=== PATIENT | female | born 1955 | race Caucasian/White ===

== ENCOUNTER 2018-09-08 17:23 | Emergency (ER) | payer OTHER ==
[2018-09-08] MEDS ORDERED: HYDROmorphone 1 MG/ML Syringe IVPUSH ONE ×2 (17:36→19:45)
[2018-09-08] MEDS ORDERED: Sodium Chloride 0.9% 1,000 ML IV ONE (17:36)
[2018-09-08] MEDS ORDERED: Ondansetron 4 MG/2 ML SDV IVPUSH ONE (17:36)
--- NOTE | 2018-09-08 17:41 | EDM.PDOC ---
ED HPI GENERAL MEDICAL PROBLEM - General Chief Complaint: Lower Extremity Injury/Pain Stated Complaint: INJURED LEG Time Seen by Provider: 09/08/18 17:33 - History of Present Illness INITIAL COMMENTS - FREE TEXT/NARRATIVE: HISTORY AND PHYSICAL: History of present illness: Patient is a 63-year-old white female presents 1 day status post fall which injured her left hip she states she's had difficulty in their inability to weight-bear since then she denies other trauma concern Review of systems: As per history of present illness and below otherwise all systems reviewed and negative. Past medical history: As per history of present illness and as reviewed below otherwise noncontributory. Surgical history: As per history of present illness and as reviewed below otherwise noncontributory. Social history: No reported history of drug or alcohol abuse. Family history: As per history of present illness and as reviewed below otherwise noncontributory. Physical exam: HEENT: Atraumatic, normocephalic, pupils reactive, negative for conjunctival pallor or scleral icterus, mucous membranes moist, throat clear, neck supple, nontender, trachea midline. Lungs: Clear to auscultation, breath sounds equal bilaterally, chest nontender. Heart: S1S2, regular, negative for clicks, rubs, or JVD. Abdomen: Soft, nondistended, nontender. Negative for masses or hepatosplenomegaly. Negative for costovertebral tenderness. Pelvis: Stable Genitourinary: Deferred. Rectal: Deferred. Extremities: Left hip is without gross deformity she is limited range of motion secondary to pain there is no crepitation noted CMS in neurovascular exam is unremarkable Neuro: Awake, alert, oriented. Cranial nerves II through XII unremarkable. Cerebellum unremarkable. Motor and sensory unremarkable throughout. Exam nonfocal. Diagnostics: CT left hip and pelvis Therapeutics: Saline 1 L bolus Dilaudid 1 mg IV Zofran 4 mg IV Impression: #1 acute left hip injury Definitive disposition and diagnosis as appropriate pending reevaluation and review of above. - Related Data Allergies Allergy/AdvReac Type Severity Reaction Status Date / Time atenolol Allergy Other Verified 09/08/18 17:38 lisinopril Allergy Tachycardia Verified 09/08/18 17:38 Home Meds: Home Meds buPROPion [Wellbutrin] 300 mg PO DAILY 09/08/18 [History] hydroCHLOROthiazide [Hydrochlorothiazide] 25 mg PO DAILY 09/08/18 [History] Review of Systems - Review of Systems Review Of Systems: ROS reveals no pertinent complaints other than HPI. ED EXAM, GENERAL - Physical Exam Exam: See Below (See dictation) Course - Vital Signs Last Recorded V/S: Last Vital Signs Temp 37.2 C 09/08/18 17:39 Pulse 102 H 09/08/18 19:27 Resp 18 09/08/18 17:39 BP 137/76 09/08/18 19:27 Pulse Ox 97 09/08/18 19:27 - Orders/Labs/Meds Orders: Active Orders 24 hr Category Date Time Status EKG Documentation Completion [RC] STAT Care 09/08/18 19:27 Ordered Chest 1V Frontal [CR] Stat Exams 09/08/18 19:28 Ordered CBC WITH AUTO DIFF [HEME] Stat Lab 09/08/18 19:27 Ordered COMPREHENSIVE METABOLIC PN,CMP [CHEM] Stat Lab 09/08/18 19:27 Ordered INR,PT,PROTHROMBIN TIME [COAG] Stat Lab 09/08/18 19:28 Ordered Meds: Medications Discontinued Medications Generic Name Dose Route Start Last Admin Trade Name Freq PRN Reason Stop Dose Admin Hydromorphone HCl 1 mg 09/08/18 17:36 09/08/18 18:07 Dilaudid IVPUSH 09/08/18 17:37 1 mg ONETIME ONE Administration Sodium Chloride 1,000 mls @ 999 mls/hr 09/08/18 17:36 09/08/18 18:08 Normal Saline IV 09/08/18 18:36 999 mls/hr STAT ONE Administration Ondansetron HCl 4 mg 09/08/18 17:36 09/08/18 18:07 Zofran IVPUSH 09/08/18 17:37 4 mg ONETIME ONE Administration Departure - Departure Time of Disposition: 19:28 Disposition: DC/Tfer to Acute Hospital 02 Condition: Good Clinical Impression: Fracture of pelvis, Closed fracture of acetabulum, hip - Discharge Information Referrals: PCP,Unknown [Primary Care Provider] - Forms: ED Department Discharge - My Orders Last 24 Hours: My Active Orders 09/08/18 19:27 EKG Documentation Completion [RC] STAT CBC WITH AUTO DIFF [HEME] Stat COMPREHENSIVE METABOLIC PN,CMP [CHEM] Stat 09/08/18 19:28 Chest 1V Frontal [CR] Stat INR,PT,PROTHROMBIN TIME [COAG] Stat - Assessment/Plan Last 24 Hours: My Active Orders 09/08/18 19:27 EKG Documentation Completion [RC] STAT CBC WITH AUTO DIFF [HEME] Stat COMPREHENSIVE METABOLIC PN,CMP [CHEM] Stat 09/08/18 19:28 Chest 1V Frontal [CR] Stat INR,PT,PROTHROMBIN TIME [COAG] Stat
--- NOTE | 2018-09-08 19:25 | CT ---
INDICATION: Status post fall, landing on the left hip. Hip pain. COMPARISON: COMPARISON DATE TECHNIQUE: CT examination of the pelvis was performed without contrast enhancement using spiral technique. 2 and 3 mm thick axial, sagittal, and coronal sections were obtained from the superior iliac crest through the pubic symphysis. Oral contrast was not administered. Please note that all CT scans at this facility use dose modulation, iterative reconstruction, and/or weight-based dosing when appropriate to reduce radiation dose to as low as reasonably achievable. FINDINGS: : There is an acute oblique fracture of the lateral left superior pubic ramus, minimally extending into the anterior-inferior margin of the acetabulum. There is minimal inferior displacement of the pubic ramus. There is an acute, oblique, comminuted, nondisplaced fracture of the midportion of the left inferior pubic ramus. There is a moderate left intrapelvic hematoma adjacent to the fractures, displacing the urinary bladder moderately toward the right. The hematoma extends superiorly to reach the level of the inferior psoas muscle but does not extend freely into pelvic cavity. There is no sign of free fluid. There is no sign of any additional fracture of the pelvic ring. Specifically, I do not see any fracture of the sacral body, disruption of the sacroiliac joints, or disruption of the pubic symphysis. The hips themselves are normal in appearance bilaterally, with anatomic alignment of the normal-appearing femoral heads with the acetabuli. There is no sign of osteoarthritis. There is mild anterior angulation of the distal 2 coccygeal segments with overlying soft tissue swelling suggesting an acute coccygeal fracture. I recommend correlation with the clinical history. In the pelvis, the appendix is normal in appearance with no sign of inflammatory process.. There is prominent sigmoid diverticulosis without evidence of diverticulitis. The loops of small bowel and colon in the pelvis are otherwise normal in appearance. The uterus is absent and the adnexal regions are normal in appearance. Aside from the left pelvic hematoma mentioned above, there is no sign of pelvic or inguinal mass or adenopathy. The urinary bladder is normal in appearance, aside from being displaced towards the right by the left pelvic hematoma. IMPRESSION: Acute, comminuted, mildly displaced fracture of the lateral aspect of the left superior pubic ramus, associated with a moderate left pelvic hematoma. No sign of free fluid in the pelvis. Acute, nondisplaced, comminuted, oblique fracture of the mid body of the left inferior pubic ramus. Minimal extension of the left superior pubic ramus fracture into the anterior-inferior margin of the acetabulum, but no other involvement of the left hip. Anterior angulation of the distal 2 coccygeal segments, possible acute sacral fracture. Prominent sigmoid diverticulosis. Please note that all CT scans at this facility use dose modulation, iterative reconstruction, and/or weight-based dosing when appropriate to reduce radiation dose to as low as reasonably achievable. Dictated by Cliff Colon MD @ Sep 08 2018 7:10PM Signed by Dr. Cliff Colon @ Sep 08 2018 7:22PM
[2018-09-08 20:08] LABS: CHLORIDE,CL 102 mmol/L (98-107); SODIUM,NA 136 mmol/L (136-145)
--- NOTE | 2018-09-08 20:27 | CR ---
INDICATION: pain/sob INDICATION: Pain/shortness of breath. TECHNIQUE: Chest 1 view. COMPARISON: None FINDINGS: Cardiovascular and mediastinum: Heart size and vasculature are normal in caliber and appearance. Mediastinum is within normal limits. Lungs and pleural space: Lungs are clear. No sign of infiltrate or mass. No sign of pleural effusion. No pneumothorax. Bones and soft tissues: No significant findings. IMPRESSION: Lungs are clear. Dictated by Davin Robert MD @ 09/08/2018 8:25:09 PM Dictated by: Davin Robert MD @ 09/08/2018 20:25:16 (Electronically Signed)
== END 2018-09-08 20:35 ==
LOC: MW.ED 17:23
DX: S32.402A Unspecified fracture of left acetabulum, initial encounter for closed fracture (principal); Z79.899 Other long term (current) drug therapy; Z88.8 Allergy status to other drugs, medicaments and biological substances; W18.30XA Fall on same level, unspecified, initial encounter
CPT/HCPCS: 71045; 73700; 80053; 85025; 85610; 93005; 96361; 96374; 96375; 99285; J1170; J2405; J7040; 99283